=== PATIENT | female | born 1940 | race Caucasian/White ===

== ENCOUNTER → 2018-10-16 | Outpatient (CLI) | payer OTHER ==
[~2018-10-16] MED LIST: ALBU2.5V5 NEB; ALBU90OI61 INH; ALEN70 PO; ATOR40TA PO; Alphagan P 5ML5 ML BOTHEYES; Aspirin EC81 MG PO; BREO ELLIPTA 11 EACH INH; DORZOPSO BOTHEYES; METO25 PO; OMEPRAZOLE MAGN20 MG PO; Xalatan2.5 ML BOTHEYES
[2018-10-16 13:41] LABS: Alanine Aminotransfer (ALT/SGP 75 U/L (12-78); Albumin/Globulin Ratio 0.7 (0.8-1.8); Alk Phos 260 U/L (40-126); Anion Gap 10 mmol/L (6-16); Aspartate Aminotrans (AST/SGOT 56 U/L (12-37); Bilirubin, Total 0.4 mg/dL (0.1-1.0); Blood Urea Nitrogen 14 mg/dL (8-24); Bun/Creatinine Ratio 20.9 (12.0-20.0); CO2, Blood 25 mmol/L (21-32); Calcium, Blood 8.1 mg/dL (8.5-10.1); Chloride, Blood 100 mmol/L (98-108); Creatinine, Blood 0.67 mg/dL (0.40-1.00); Globulin, Blood 4.2 g/dL (2.2-4.0); Glomerular Filtration Rate >60 (60-); Glucose, Blood 93 mg/dL (70-99); Potassium, Blood 3.8 mmol/L (3.5-5.5); Sodium, Blood 135 mmol/L (136-145); Total Protein, Blood 7.2 g/dL (6.4-8.2)
== END ==
LOC: LAB EV 13:05 → LAB SHORT 13:05
PROVIDERS: Physician Assistant
DX: R93.89 Abnormal findings on diagnostic imaging of other specified body structures (principal); R55 Syncope and collapse; R74.8 Abnormal levels of other serum enzymes
CPT/HCPCS: 80053; 82977

== ENCOUNTER 2018-10-17 15:58 | Inpatient (IN) | payer OTHER ==
[~2018-10-17] VITALS: Ht 160 cm; Wt 52.2 kg
[2018-10-17] MEDS ORDERED: BREO ELLIPTA 11 EACH INH (16:11)
[2018-10-17] MEDS ORDERED: ATOR40TA PO (16:11)
[2018-10-17] MEDS ORDERED: ALBU2.5V5 NEB (16:11)
[2018-10-17] MEDS ORDERED: METO25 PO (16:12)
[2018-10-17] MEDS ORDERED: OMEPRAZOLE MAGN20 MG PO (16:12)
[2018-10-17 16:41] LABS: BASOPHILS ABSOLUTE AUTO 0.07 K/mm3 (0.00-0.23); BASOPHILS PERCENT AUTO 1 % (0-2); EOSINOPHILS ABSOLUTE AUTO 0.71 K/mm3 (0.00-0.68); EOSINOPHILS PERCENT AUTO 6 % (0-6); Hematocrit 35.5 % (33.0-51.0); IMMATURE GRAN ABSOLUTE AUTO 0.11 K/mm3 (0.00-0.10); IMMATURE GRAN PERCENT AUTO 1 % (0-1); LYMPHOCYTES ABSOLUTE AUTO 1.61 K/mm3 (0.84-5.20); LYMPHOCYTES PERCENT AUTO 12 % (21-46); MONOCYTES ABSOLUTE AUTO 1.11 K/mm3 (0.16-1.47); MONOCYTES PERCENT AUTO 9 % (4-13); Mean Corpuscular HGB 28.5 pg (26.0-34.0); Mean Corpuscular Volume 92 fL (80-100); Mean Platelet Volume 8.6 fL (9.1-12.4); NEUTROPHILS ABSOLUTE AUTO 9.34 K/mm3 (1.96-9.15); NEUTROPHILS PERCENT AUTO 72 % (41-73); Platelet Count 532 K/mm3 (150-400); RDW Coefficient Variation 13.9 % (11.7-14.2); RDW Standard Deviation 47.4 fL (35.1-46.3); Red Blood Cell Count 3.86 M/mm3 (3.80-5.20); White Blood Cell Count 12.95 K/mm3 (4.00-11.30)
[2018-10-17 17:00] LABS: Alanine Aminotransfer (ALT/SGP 51 U/L (12-78); Albumin, Blood 2.8 g/dL (3.4-5.0); Albumin/Globulin Ratio 0.5 (0.8-1.8); Alk Phos 246 U/L (50-136); Anion Gap 10 mmol/L (6-16); Aspartate Aminotrans (AST/SGOT 27 U/L (12-37); Bilirubin, Total 0.2 mg/dL (0.1-1.0); Blood Urea Nitrogen 12 mg/dL (8-24); Bun/Creatinine Ratio 22.9 (12.0-20.0); CO2, Blood 23 mmol/L (21-32); Calcium, Blood 8.6 mg/dL (8.5-10.1); Chloride, Blood 104 mmol/L (98-108); Creatinine, Blood 0.53 mg/dL (0.40-1.00); Globulin, Blood 5.1 g/dL (2.2-4.0); Glomerular Filtration Rate >60 (60-); Glucose, Blood 107 mg/dL (70-99); Potassium, Blood 3.5 mmol/L (3.5-5.5); Sodium, Blood 137 mmol/L (136-145); Total Protein, Blood 7.9 g/dL (6.4-8.2)
[2018-10-17] MEDS ORDERED: Alphagan P 5ML5 ML BOTHEYES (17:46)
[2018-10-17] MEDS ORDERED: DORZOPSO BOTHEYES (17:46)
[2018-10-17] MEDS ORDERED: Xalatan2.5 ML BOTHEYES ×2 (17:47→21:02)
[2018-10-17] MEDS ORDERED: ALEN70 PO (18:01)
[2018-10-17] MEDS ORDERED: ALBU90OI61 INH (18:55)
[2018-10-17] MEDS ORDERED: Aspirin EC81 MG PO (18:58)
[2018-10-18 04:56] LABS: BASOPHILS ABSOLUTE AUTO 0.09 K/mm3 (0.00-0.23); BASOPHILS PERCENT AUTO 1 % (0-2); EOSINOPHILS ABSOLUTE AUTO 0.85 K/mm3 (0.00-0.68); EOSINOPHILS PERCENT AUTO 9 % (0-6); Hematocrit 33.7 % (33.0-51.0); Hemoglobin 10.4 g/dL (11.5-16.0); IMMATURE GRAN ABSOLUTE AUTO 0.19 K/mm3 (0.00-0.10); IMMATURE GRAN PERCENT AUTO 2 % (0-1); LYMPHOCYTES ABSOLUTE AUTO 1.77 K/mm3 (0.84-5.20); LYMPHOCYTES PERCENT AUTO 18 % (21-46); MONOCYTES ABSOLUTE AUTO 0.91 K/mm3 (0.16-1.47); MONOCYTES PERCENT AUTO 9 % (4-13); Mean Corpuscular HGB 28.4 pg (26.0-34.0); Mean Corpuscular HGB Conc 30.9 g/dL (31.5-36.5); Mean Corpuscular Volume 92 fL (80-100); Mean Platelet Volume 8.7 fL (9.1-12.4); NEUTROPHILS ABSOLUTE AUTO 6.21 K/mm3 (1.96-9.15); NEUTROPHILS PERCENT AUTO 62 % (41-73); Platelet Count 507 K/mm3 (150-400); RDW Coefficient Variation 13.9 % (11.7-14.2); RDW Standard Deviation 47.6 fL (35.1-46.3); Red Blood Cell Count 3.66 M/mm3 (3.80-5.20); White Blood Cell Count 10.02 K/mm3 (4.00-11.30)
[2018-10-18 05:22] LABS: Anion Gap 9 mmol/L (6-16); Blood Urea Nitrogen 9 mg/dL (8-24); Bun/Creatinine Ratio 16.2 (12.0-20.0); CO2, Blood 22 mmol/L (21-32); Calcium, Blood 8.8 mg/dL (8.5-10.1); Chloride, Blood 109 mmol/L (98-108); Creatinine, Blood 0.56 mg/dL (0.40-1.00); Glomerular Filtration Rate >60 (60-); Glucose, Blood 93 mg/dL (70-99); Potassium, Blood 3.8 mmol/L (3.5-5.5); Sodium, Blood 140 mmol/L (136-145); Thyroxine (T4) 8.8 ug/dL (4.8-13.9)
[2018-10-18 05:27] LABS: Thyroid Stimulating Hormone 0.406 uIU/mL (0.360-4.800)
--- NOTE | 2018-10-18 05:40 | NUR ---
SHIFT SUMMARY PT ARRIVED TO ROOM APPROX 2014. C/O PAIN IN UPPER BODY AND HEAD AND MEDICATED C TYLENOL. SHE SAID IT HELPED FOR AWHILE BUT SINCE SHE WAS COUGHING SO MUCH HER RIBS WERE SORE AND NEEDED MORE TYLENOL LATER. SBA TO BA FOR IV POLE ASSISTANCE. RA AT 94%. SHE WAS ABLE TO DOZE ON AND OFF T/O NIGHT. CALL LIGHT IN REACH.
--- NOTE | 2018-10-18 07:20 | NUR ---
ASSUMED CARE OF PT- BEDSIDE REPORT COMPLETE WITH NIGHT KASSIDY KULKARNI. PT IN AIRBORN ISOLATION TO R/O TB. SPOKE TO NANCY MARRUFO IN INFECTION CONTROL AND VERIFIED NO CONTACT IOSLATION NEEDED. PT HAS NO OPEN WOUNDS. PT HAS NO S&S OF DISTRESS AT THE TIME OF BEDSIDE REPORT, RESP E/U.
--- NOTE | 2018-10-18 17:06 | NUR ---
PT ASED STAFF IF DOUBLE VISION COULD BE CAUSED BY THE ANTIBIOTICS SHE IS RECIEVING. CALLED PHARMACIST AYSHA GUERRA FOR ADDITIONAL INFO REGUARDING, WAITING FOR CALL BACK.
--- NOTE | 2018-10-18 17:10 | NUR ---
CONFIRMED WITH AYSHA IN PHARMACY THAT DIPLOPIA IS A POSSIBLE SIDE EFFECT OF LEVAQUIN. WILL CALL DR RENDON PT MAY NEED ALTERNATIVE ABX TREATMENT.
--- NOTE | 2018-10-18 17:22 | NUR ---
SPOKE TO NIGHT COVERAGE FOR WAL[facility] CARLOS. NO CHANGE TO THE EMAR AT THIS TIME. WALI CARLOS SHOULD ADRESS THIS ISSUE IN THE MORNING.
--- NOTE | 2018-10-18 17:58 | NUR ---
SHIFT SUMMARY- PT HAS HAD NO ACUTE CHANGES T/O THE SHIFT. SHE APPEARS TO BE VERY EMOTIONAL, SPOKE TO NURSING RESIDENCE SUPERVISOR ABOUT A VISIT FROM PASTORAL CARE, WILL PLACE A PASTORAL CARE CARE CONSULT. PT CURRENTLY MEETING WITH PALLIATIVE CARE RN YAJAIRA. PT HAS HER ADVANCED DIRECTIVE ON THE BEDSIDE TABLE. PT IS STILL A 1PA TO THE BATHROOM. PT GETS TIRED AND A LITTLE SOB WITH AMBULATION. PT WAS HAVING DOUBLE VISION BUT STATES IT HAS RESOLVED AT THIS POINT. PT STATED THIS ACTUALLY COMES AND GOES FREQUENTLY. MAY NOT BE A SIDE EFFECT OF THE ABX.
--- NOTE | 2018-10-19 04:10 | NUR ---
DIRECTOR PROSPECT SUMMARY NO ACUTE CHANGES THIS SHIFT. PT AAOX4 AND VERY PLEASANT. DENIES PAIN, SOB, N/V. PT ABLE TO SLEEP FOR THE FIRST TIMES IN A FEW DAYS. PT HAS RESTED COMFORTABLY FOR THE MAJORIT OF THE SHIFT. VSS, WILL CONTINUE TO MONITOR.
--- NOTE | 2018-10-19 18:00 | NUR ---
SUMMARY PT IS A/O X4, PLEASANT/COOPERATIVE AFFECT. SHE STATE NO SHORTNESS OF BREATH @ REST, STATE CONTINUING SOB W EXERTION HOWEVER SHE HAS BEEN UP AMBULATING IN [place]. DR MILLS (PULM) IN TO SEE HER TODAY, STATE OK TO AMBULATE IN ROOM. STATE AFTER PT TREATED FOR CURRENT PNEUMONIA SHE WILL RECOMMEND OUTPT BRONCHOSCOPY. IV ANTIBX CHANGED, ALSO ORDER IV SOLUMEDROL. LUNGS ARE COARSE W DRY/FINANCIAL SERVICES ASSOCIATE COUGH. BIOX 94% RA, VSS.
--- NOTE | 2018-10-20 07:37 | NUR ---
SHIFT SUMMARY: PT WITH NEW ACUTE CHANGES OVERNIGHT. PT IS A&O, INDEPENDENT IN RM. LS COARSE, O2 SATS >92% ON RA. PT HAD CHEST PHYSIOTHERAPY TONIGHT PER RT. IV ANTIBIOTICS AND IV SOLU MEDROL ADMINISTERED PER ORDERS. LAST NIGHT, PT REPORTS IMPROVEMENT IN SOB. HOWEVER, THIS AM PT REPORTS MORE SOB WHEN AMBULATING. NO OTHER CHANGES TO REPORT. WILL CONT TO MONITOR AND PROVIDE CARE.
[2018-10-20 12:21] LABS: Creatinine, Blood 0.61 mg/dL (0.40-1.00); Vancomycin, Trough 7.7 ug/mL (5.0-10.0)
--- NOTE | 2018-10-20 17:22 | NUR ---
SUMMARY PT IS A/O X4, PLEASANT/COOPERATIVE, VERY APPRECIATIVE OF CARE. SHE STATE SHORTNESS OF BREATH CONTINUES TO IMPROVE, STATE CHEST CPT EFFECTIVE. LUNGS SOMEWHAT IMPROVED TODAY HOWEVER STILL SOME COARSENESS IN BASES. OCCASIONAL DRY COUGH, UNABLE TO PRODUCE SPUTUM. BIOX 96% RA. IV SOLUMEDROL & ANTIBX CONTINUE, PULMONOLOGY (DR MILLS) CONTINUES TO FOLLOW/MX. VSS.
--- NOTE | 2018-10-21 07:13 | NUR ---
SHIFT SUMMARY PT IS A 78 Y/O FEMALE, ADMITTED FOR PNA. SHE IS A&O X 4, AND INDEPENDENT IN THE ROOM. SHE DENIED ANY ACUTE PAIN, NAUSEA OR SOB. VITALS REMAINED STABLE. NO OTHER ACUTE CHANGES IN PT CONDITION NOTED. WILL CONTINUE TO MONITOR AND TREAT PER EMAR.
--- NOTE | 2018-10-21 14:16 | NUR ---
Met with Mrs. Quiros and her , Dominic, at bedside. Both report a strong felipe that sustains them during fearful times. Karey is a delight-talkative and friendly. She expects to be discharged this afternoon. Dominic and Karey have been 31 years. They have nine children between them and 40+ grand & great grand kids. Karey became tearful when she spoke about her gratitude to God for healing her. The three of us prayed together for continued healing and brad. I will remain available.
[2018-10-21] MEDS ORDERED: ACET500 PO (15:01)
[2018-10-21] MEDS ORDERED: MUCUS ER600 MG PO (15:03)
[2018-10-21] MEDS ORDERED: Florastor250 MG PO (15:03)
[2018-10-21] MEDS ORDERED: LEVO750 PO (15:04)
[2018-10-21] MEDS ORDERED: PRED20 PO (15:15)
--- NOTE | 2018-10-21 16:48 | NUR ---
1645 PT DISCHARGED HOME VIA PERSONAL VEHICLE ACCOMPANIED AND DRIVEN BY . ESCORTED TO [facility] ENTRANCE VIA W/C BY HOME HEALTH TRAVEL OT. IV REMOVED. NEW RX FAXED TO [facility] PER PT REQUEST. PULMONOLGY APPOINTMENT MADE FOR 12/02/18. CARE MANAGEMENT FOR [facility] SET UP APPOINTMENT FOR PCP. NO NEW CHANGES. OR CONCERNS THIS SHIFT.
== END 2018-10-21 16:46 | disposition home or self-care (01) | DRG 193 ==
LOC: ER 15:58 → MEDS 17:58 → ENPENDDIS 10-21 11:58 → MEDS 10-21 16:46
PROVIDERS: Emergency Medicine; Internal Medicine; Internal Medicine Pulmonary Disease; ADMIT Family Medicine
DX: J18.0 Bronchopneumonia, unspecified organism (principal); J96.21 Acute and chronic respiratory failure with hypoxia; J45.901 Unspecified asthma with (acute) exacerbation; J47.9 Bronchiectasis, uncomplicated; E78.5 Hyperlipidemia, unspecified; Z66 Do not resuscitate; R62.7 Adult failure to thrive; I25.10 Atherosclerotic heart disease of native coronary artery without angina pectoris; H40.9 Unspecified glaucoma; Z95.1 Presence of aortocoronary bypass graft; Z68.20 Body mass index [BMI] 20.0-20.9, adult
CPT/HCPCS: 36415; 71250; 80048; 80053; 80202; 82565; 83605; 84145; 84436; 84443; 85025; 87040; 87070; 87205; 94640; 94667; 94668; 94760; 96365; 99285-25; J0696; J1650; J1956; J2543; J2920; J3370; J7050; J7120

== ENCOUNTER → 2018-10-17 | Outpatient (CLI) | payer OTHER ==
[2018-10-18 08:10] LABS: HBSAG SCREEN Negative (Negative); HEP A AB, IGM Negative (Negative); HEP B CORE AB, IGM Negative (Negative); HEP C VIRUS AB <0.1 (0.0-0.9)
== END ==
LOC: LAB EV 09:00 → LAB SHORT 09:00
PROVIDERS: Physician Assistant
DX: R10.84 Generalized abdominal pain (principal); R93.89 Abnormal findings on diagnostic imaging of other specified body structures
CPT/HCPCS: 80074

== ENCOUNTER 2019-07-18 07:22 | Day surgery (SDC) | payer OTHER ==
[~2019-07-18] VITALS: Ht 160 cm; Wt 56.5 kg
[~2019-07-18 07:22] MED LIST changes: +ACET500 PO; +Florastor250 MG PO; +LEVO750 PO; +MUCUS ER600 MG PO; +PRED20 PO
--- NOTE | 2019-07-18 08:30 | NUR ---
Ambulatory in Day Surgery. History, Chart, Medications and Allergies reviewed before start of procedure.Patient confirms NPO status and agrees with scheduled surgery. Lungs clear T/O to Auscultation. Patient States Post-Procedure ride home has been arranged WITH .
--- NOTE | 2019-07-18 09:07 | NUR ---
07/18/19 0907 VENTURA LOZANO 2% LIDOCAINE JELLY WITH 5 DROPS AVA-SYNEPHRINE 0.5% APPLIED TO BILATERAL NARES WITH COTTON TIP APPLICATOR. 2% LIDOCAINE SOLUTION SPRAYED TO OROPHARYNX USING ATOMIZATION DEVICE UNTIL GAG REFLEX GONE. History, Chart, Medications and Allergies reviewed before start of procedure.3-LEAD EKG REVIEWED WITH PHYSICIAN PRIOR TO START OF PROCEDURE.O2 VIA N/C INTACT THROUGHOUT SEDATION/PROCEDURE.
--- NOTE | 2019-07-18 09:46 | NUR ---
ARRIVED FROM ENDO WAKING UP TALKING TO STAFF SOME CAUGHING AND BLOWING NOSE. VSS
--- NOTE | 2019-07-18 11:48 | NUR ---
Discharge instructions reviewed with patient. Patient verbalizes understanding. Copy given to patient to take home. Patient States Post-Procedure ride home has been arranged. Discharged via wheelchair to private car for ride home.
== END 2019-07-18 22:53 | disposition home or self-care (01) ==
LOC: ORSCMMR 07:22 → ORD 08:30 → ORSCMMR 22:53
PROVIDERS: Internal Medicine Pulmonary Disease
PROC: 0B9J8ZX Drainage of Left Lower Lung Lobe, Via Natural or Artificial Opening Endoscopic, Diagnostic (ICD-10-PCS; principal; 2019-07-18 08:30)
DX: J47.1 Bronchiectasis with (acute) exacerbation (principal); J45.909 Unspecified asthma, uncomplicated; Z79.899 Other long term (current) drug therapy
CPT/HCPCS: 71045; 87070; 87071; 87077; 87186; 87205; 88108; 88312; J2250; J3010; J7120

== ENCOUNTER → 2020-12-21 | Outpatient (CLI) | payer OTHER | END | disposition home or self-care (01) | LOC: LAB SHORT 07:40 | DX: J47.1 Bronchiectasis with (acute) exacerbation (principal) | CPT/HCPCS: 87070; 87077; 87186; 87205 ==

== ENCOUNTER → 2021-02-01 | Outpatient (CLI) | payer OTHER | END | disposition home or self-care (01) | LOC: LAB SHORT 08:50 | DX: J47.1 Bronchiectasis with (acute) exacerbation (principal) | CPT/HCPCS: 87015; 87116; 87206 ==

== ENCOUNTER → 2021-02-02 | Outpatient (CLI) | payer OTHER | END | disposition home or self-care (01) | LOC: LAB SHORT 11:15 | DX: J47.1 Bronchiectasis with (acute) exacerbation (principal) | CPT/HCPCS: 87015; 87116; 87206 ==

== ENCOUNTER → 2021-02-04 | Outpatient (CLI) | payer OTHER | END | disposition home or self-care (01) | LOC: LAB SHORT 09:50 → LAB 09:50 | DX: J47.1 Bronchiectasis with (acute) exacerbation (principal) | CPT/HCPCS: 87015; 87116; 87206 ==

== ENCOUNTER → 2021-02-09 | Outpatient (CLI) | payer OTHER | LOC: LAB SHORT 11:50 → LAB 11:50 | DX: J47.9 Bronchiectasis, uncomplicated (principal); Z87.09 Personal history of other diseases of the respiratory system | CPT/HCPCS: 87070; 87077; 87186; 87205 ==

== ENCOUNTER → 2021-08-15 | Outpatient (CLI) | payer OTHER | END | disposition home or self-care (01) | LOC: LAB SHORT 08:54 → LAB 08:54 | DX: J47.1 Bronchiectasis with (acute) exacerbation (principal) | CPT/HCPCS: 87070; 87077; 87186; 87205 ==

== ENCOUNTER → 2021-08-30 | Outpatient (CLI) | payer OTHER | END | disposition home or self-care (01) | LOC: LAB SHORT 15:16 → LAB 15:16 | DX: J47.1 Bronchiectasis with (acute) exacerbation (principal) | CPT/HCPCS: 87070; 87077; 87186; 87205 ==

== ENCOUNTER → 2021-09-11 | Outpatient (CLI) | payer OTHER ==
[2021-09-11 10:49] LABS: BASOPHILS ABSOLUTE AUTO 0.06 K/mm3 (0.00-0.23); BASOPHILS PERCENT AUTO 1 % (0-2); EOSINOPHILS ABSOLUTE AUTO 0.09 K/mm3 (0.00-0.68); EOSINOPHILS PERCENT AUTO 1 % (0-6); Hematocrit 33.3 % (33.0-51.0); Hemoglobin 10.4 g/dL (11.5-16.0); IMMATURE GRAN ABSOLUTE AUTO 0.04 K/mm3 (0.00-0.10); IMMATURE GRAN PERCENT AUTO 0 % (0-1); LYMPHOCYTES ABSOLUTE AUTO 1.45 K/mm3 (0.84-5.20); LYMPHOCYTES PERCENT AUTO 11 % (21-46); MONOCYTES ABSOLUTE AUTO 0.86 K/mm3 (0.16-1.47); MONOCYTES PERCENT AUTO 7 % (4-13); Mean Corpuscular HGB 28.7 pg (26.0-34.0); Mean Corpuscular HGB Conc 31.2 g/dL (31.5-36.5); Mean Corpuscular Volume 92 fL (80-100); Mean Platelet Volume 8.5 fL (9.1-12.4); NEUTROPHILS ABSOLUTE AUTO 10.64 K/mm3 (1.96-9.15); NEUTROPHILS PERCENT AUTO 81 % (41-73); Platelet Count 404 K/mm3 (150-400); RDW Coefficient Variation 13.4 % (11.7-14.2); RDW Standard Deviation 45.2 fL (35.1-46.3); Red Blood Cell Count 3.62 M/mm3 (3.80-5.20); White Blood Cell Count 13.14 K/mm3 (4.00-11.30)
[2021-09-11 11:06] LABS: Alanine Aminotransfer (ALT/SGP 21 U/L (12-78); Albumin, Blood 3.2 g/dL (3.4-5.0); Albumin/Globulin Ratio 0.9 (0.8-1.8); Alk Phos 77 U/L (40-126); Anion Gap 8 mmol/L (6-16); Aspartate Aminotrans (AST/SGOT 17 U/L (12-37); Bilirubin, Total 0.3 mg/dL (0.1-1.0); Blood Urea Nitrogen 10 mg/dL (8-24); Bun/Creatinine Ratio 16.7 (12.0-20.0); CO2, Blood 25 mmol/L (21-32); Calcium, Blood 8.6 mg/dL (8.5-10.1); Chloride, Blood 103 mmol/L (98-108); Globulin, Blood 3.5 g/dL (2.2-4.0); Glomerular Filtration Rate >60 (60-); Glucose, Blood 112 mg/dL (70-99); Potassium, Blood 3.9 mmol/L (3.5-5.5); Sodium, Blood 136 mmol/L (136-145); Total Protein, Blood 6.7 g/dL (6.4-8.2)
== END ==
LOC: LAB SHORT 10:44 → LAB EV 10:44
PROVIDERS: General Practice
DX: R06.00 Dyspnea, unspecified (principal)
CPT/HCPCS: 80053; 85025

== ENCOUNTER → 2021-10-10 | Outpatient (CLI) | payer OTHER ==
[~2021-10-10] MED LIST changes: +ALBU3IS INH; +ASPI81CH PO; +ATORVASTATIN CA80 M1 PO; +BREO ELLIPTA INH; +Brimonidine Tartrate BOTHEYES; +DORZOLAMIDE 2%10 M1 BOTHEYES; +FOSAMAX70 MG PO; +Latanoprost BOTHEYES; +Lopressor 25 mg25 MG PO; +OMEP20ER PO
== END | disposition home or self-care (01) ==
LOC: LAB SHORT 10:15
DX: J47.1 Bronchiectasis with (acute) exacerbation (principal)
CPT/HCPCS: 87070; 87077; 87186; 87205

== ENCOUNTER 2021-10-13 15:26 | Inpatient (IN) | payer OTHER, MEDICARE ==
[~2021-10-13] VITALS: Ht 160 cm; Wt 49.8 kg
[~2021-10-13 15:26] MED LIST changes: -ALBU3IS INH; -ASPI81CH PO; -ATORVASTATIN CA80 M1 PO; -BREO ELLIPTA INH; -Brimonidine Tartrate BOTHEYES; -DORZOLAMIDE 2%10 M1 BOTHEYES; -FOSAMAX70 MG PO; -Latanoprost BOTHEYES; -Lopressor 25 mg25 MG PO; -OMEP20ER PO
--- NOTE | 2021-10-13 15:46 | NUR ---
DR BELTRÁN NOTIFIED OF PATIENT'S ARRIVAL TO ROOM AT THIS TIME. AWAITING NEW ORDERS.
[2021-10-13 16:24] LABS: BASOPHILS ABSOLUTE AUTO 0.08 K/mm3 (0.00-0.23); BASOPHILS PERCENT AUTO 1 % (0-2); EOSINOPHILS ABSOLUTE AUTO 0.16 K/mm3 (0.00-0.68); EOSINOPHILS PERCENT AUTO 1 % (0-6); Hematocrit 37.8 % (33.0-51.0); Hemoglobin 11.6 g/dL (11.5-16.0); IMMATURE GRAN ABSOLUTE AUTO 0.07 K/mm3 (0.00-0.10); IMMATURE GRAN PERCENT AUTO 1 % (0-1); LYMPHOCYTES ABSOLUTE AUTO 2.42 K/mm3 (0.84-5.20); LYMPHOCYTES PERCENT AUTO 16 % (21-46); MONOCYTES ABSOLUTE AUTO 0.88 K/mm3 (0.16-1.47); MONOCYTES PERCENT AUTO 6 % (4-13); Mean Corpuscular HGB 28.2 pg (26.0-34.0); Mean Corpuscular HGB Conc 30.7 g/dL (31.5-36.5); Mean Corpuscular Volume 92 fL (80-100); Mean Platelet Volume 8.3 fL (9.1-12.4); NEUTROPHILS ABSOLUTE AUTO 11.47 K/mm3 (1.96-9.15); NEUTROPHILS PERCENT AUTO 76 % (41-73); Platelet Count 608 K/mm3 (150-400); RDW Coefficient Variation 13.2 % (11.7-14.2); RDW Standard Deviation 44.6 fL (35.1-46.3); Red Blood Cell Count 4.12 M/mm3 (3.80-5.20); White Blood Cell Count 15.08 K/mm3 (4.00-11.30)
[2021-10-13] MEDS ORDERED: ALBU3IS INH (16:54)
[2021-10-13] MEDS ORDERED: FOSAMAX70 MG PO (16:55)
[2021-10-13] MEDS ORDERED: ASPI81CH PO (16:57)
[2021-10-13] MEDS ORDERED: ATORVASTATIN CA80 M1 PO (16:58)
[2021-10-13] MEDS ORDERED: Brimonidine Tartrate BOTHEYES (16:59)
[2021-10-13] MEDS ORDERED: DORZOLAMIDE 2%10 M1 BOTHEYES (17:00)
[2021-10-13] MEDS ORDERED: BREO ELLIPTA INH (17:02)
[2021-10-13] MEDS ORDERED: Latanoprost BOTHEYES (17:03)
[2021-10-13 17:04] LABS: Alanine Aminotransfer (ALT/SGP 23 U/L (12-78); Albumin, Blood 3.6 g/dL (3.4-5.0); Albumin/Globulin Ratio 0.8 (0.8-1.8); Alk Phos 83 U/L (50-136); Anion Gap 7 mmol/L (6-16); Aspartate Aminotrans (AST/SGOT 19 U/L (12-37); Bilirubin, Total 0.1 mg/dL (0.1-1.0); Blood Urea Nitrogen 16 mg/dL (8-24); Bun/Creatinine Ratio 23.9 (12.0-20.0); CO2, Blood 27 mmol/L (21-32); Calcium, Blood 9.5 mg/dL (8.5-10.1); Chloride, Blood 104 mmol/L (98-108); Creatinine, Blood 0.67 mg/dL (0.40-1.00); Globulin, Blood 4.7 g/dL (2.2-4.0); Glomerular Filtration Rate >60 (60-); Glucose, Blood 110 mg/dL (70-99); Potassium, Blood 4.7 mmol/L (3.5-5.5); Sodium, Blood 138 mmol/L (136-145); Total Protein, Blood 8.3 g/dL (6.4-8.2)
[2021-10-13] MEDS ORDERED: Lopressor 25 mg25 MG PO (17:04)
[2021-10-13] MEDS ORDERED: OMEP20ER PO (17:06)
[2021-10-13 17:16] LABS: Influenza A, PCR NEGATIVE (NEGATIVE); Influenza B, PCR NEGATIVE (NEGATIVE); Resp Syncytial Virus, PCR NEGATIVE (NEGATIVE); SARS-Cov-2 (COVID-19) PCR, MMC NEGATIVE (NEGATIVE)
--- NOTE | 2021-10-13 18:02 | NUR ---
SHIFT SUMMARY PT AXO, PLEASANT AND COOPERATIVE WITH CARE. PT ARRIVED TO ROOM VIA WHEELCHAIR AT 1543. ADMISSION COMPLETED WITH THIS NURSE WITH PROGRAM PARAPROFESSIONAL PRESENT. IV PLACED. PT ORIENTED TO ROOM, CALL LIGHT AND INSTRUCTED TO CALL PRIOR TO OOB. PT AGREES. BED IN LOW POSITION, CALL LIGHT WITHIN REACH AND SPOUSE PRESENT AT BEDSIDE. PT HAVING PRODUCTIVE COUGH WITH THICK YELLOW SPUTUM. 94% ON RA. PT DENIES PAIN, SOB AND NV.
[2021-10-14 04:45] LABS: BASOPHILS ABSOLUTE AUTO 0.07 K/mm3 (0.00-0.23); BASOPHILS PERCENT AUTO 1 % (0-2); EOSINOPHILS ABSOLUTE AUTO 0.22 K/mm3 (0.00-0.68); EOSINOPHILS PERCENT AUTO 2 % (0-6); Hematocrit 34.4 % (33.0-51.0); Hemoglobin 10.6 g/dL (11.5-16.0); IMMATURE GRAN ABSOLUTE AUTO 0.04 K/mm3 (0.00-0.10); IMMATURE GRAN PERCENT AUTO 0 % (0-1); LYMPHOCYTES ABSOLUTE AUTO 2.09 K/mm3 (0.84-5.20); LYMPHOCYTES PERCENT AUTO 23 % (21-46); MONOCYTES ABSOLUTE AUTO 0.86 K/mm3 (0.16-1.47); MONOCYTES PERCENT AUTO 9 % (4-13); Mean Corpuscular HGB 27.7 pg (26.0-34.0); Mean Corpuscular HGB Conc 30.8 g/dL (31.5-36.5); Mean Corpuscular Volume 90 fL (80-100); Mean Platelet Volume 8.6 fL (9.1-12.4); NEUTROPHILS ABSOLUTE AUTO 5.88 K/mm3 (1.96-9.15); NEUTROPHILS PERCENT AUTO 64 % (41-73); Platelet Count 531 K/mm3 (150-400); RDW Coefficient Variation 13.2 % (11.7-14.2); RDW Standard Deviation 43.8 fL (35.1-46.3); Red Blood Cell Count 3.83 M/mm3 (3.80-5.20); White Blood Cell Count 9.16 K/mm3 (4.00-11.30)
[2021-10-14 05:04] LABS: Anion Gap 8 mmol/L (6-16); Blood Urea Nitrogen 16 mg/dL (8-24); Bun/Creatinine Ratio 19.3 (12.0-20.0); CO2, Blood 26 mmol/L (21-32); Calcium, Blood 9.3 mg/dL (8.5-10.1); Chloride, Blood 103 mmol/L (98-108); Creatinine, Blood 0.83 mg/dL (0.40-1.00); Glomerular Filtration Rate >60 (60-); Glucose, Blood 101 mg/dL (70-99); Potassium, Blood 4.1 mmol/L (3.5-5.5); Sodium, Blood 137 mmol/L (136-145)
--- NOTE | 2021-10-14 07:22 | NUR ---
SHIFT SUMMARY: PATIENT REPORTS FEELING WEAK AND REQUESTS A FWW FOR AMBULATION, DOES NOT USE ONE AT HOME. REPORTED LEGS CRAMPS AND REQUESTED SLEEPING PILL. DR SEARS WAS NOTIFIED AND ORDERS FOR MELATONIN AND TYLENOL WERE OBTAINED AND MEDS WERE GIVEN WITH GOOD EFFECT.
--- NOTE | 2021-10-14 11:24 | NUR ---
Responding to Pt. Spiritual Request. Pt. is alert in bed and welcomes my visit. Care management was wrapping up an interview, and friend is present. Pt. is pleasant and shares genuinely how God has prtoected her through several serious health crisis in her life. Pt. is a woman of felipe. Rapport is established and prayer is given in light of her anticipated discharge to a skilled care facility. Pt. and friend verbalized gratitude for the spiritual care visit.
--- NOTE | 2021-10-15 06:47 | NUR ---
SHIFT SUMMARY: PATIENT IS UP INDEPENDANT IN THE ROOM WITH A STEADY GAIT. REQUESTED PRN MELATONIN FOR INSOMNIA AND TYLENOL FOR HEADACHE. MEDS WERE GIVEN WITH GOOD EFFECT. LOW GRADE TEMP. ALSO RESOLVED WITH TYLENOL ADMIN.
--- NOTE | 2021-10-15 16:40 | NUR ---
DAY SHIFT SUMMARY 81 YR OLD FEMALE PT ADMITTED FOR PNEUMONIA. COUGH PRODUCTIVE. INDEPENDENT IN ROOM, A/O X4, ON RA. AWAITING SNF PLACEMENT FOR ABX THERAPY. CALL LIGHT WITHIN REACH AND ABLE TO CALL APPROPRIATE.
[2021-10-16 05:05] LABS: BASOPHILS ABSOLUTE AUTO 0.08 K/mm3 (0.00-0.23); BASOPHILS PERCENT AUTO 1 % (0-2); EOSINOPHILS ABSOLUTE AUTO 0.21 K/mm3 (0.00-0.68); EOSINOPHILS PERCENT AUTO 2 % (0-6); Hematocrit 33.1 % (33.0-51.0); Hemoglobin 10.4 g/dL (11.5-16.0); IMMATURE GRAN ABSOLUTE AUTO 0.03 K/mm3 (0.00-0.10); IMMATURE GRAN PERCENT AUTO 0 % (0-1); LYMPHOCYTES PERCENT AUTO 28 % (21-46); MONOCYTES ABSOLUTE AUTO 0.78 K/mm3 (0.16-1.47); MONOCYTES PERCENT AUTO 8 % (4-13); Mean Corpuscular HGB 27.9 pg (26.0-34.0); Mean Corpuscular HGB Conc 31.4 g/dL (31.5-36.5); Mean Corpuscular Volume 89 fL (80-100); Mean Platelet Volume 8.7 fL (9.1-12.4); NEUTROPHILS ABSOLUTE AUTO 5.71 K/mm3 (1.96-9.15); NEUTROPHILS PERCENT AUTO 61 % (41-73); Platelet Count 545 K/mm3 (150-400); RDW Coefficient Variation 13.2 % (11.7-14.2); RDW Standard Deviation 43.2 fL (35.1-46.3); Red Blood Cell Count 3.73 M/mm3 (3.80-5.20); White Blood Cell Count 9.41 K/mm3 (4.00-11.30)
--- NOTE | 2021-10-16 05:31 | NUR ---
SHIFT SUMMARY: NO ACUTE CHANGES THIS SHIFT. PATIENT REQUESTED TYLENOL FOR SLIGHT HEADACHE FROM COUGHING AND MELATONIN FOR SLEEP. BOTH WERE GIVEN WITH GOOD EFFECT. IV SITE IS IRRITAING IN LEFT AC. DRGS IS CHANGED, SIGHT IS INTACT BUT PATIENTWILL NEED AN EXTENDED DWELLING IV SITE JONEL.
[2021-10-16 05:48] LABS: Anion Gap 5 mmol/L (6-16); Blood Urea Nitrogen 14 mg/dL (8-24); CO2, Blood 26 mmol/L (21-32); Calcium, Blood 9.3 mg/dL (8.5-10.1); Chloride, Blood 103 mmol/L (98-108); Creatinine, Blood 0.52 mg/dL (0.40-1.00); Glomerular Filtration Rate >60 (60-); Glucose, Blood 103 mg/dL (70-99); Magnesium, Blood 2.2 mg/dL (1.6-2.4); Phosphorus, Blood 3.9 mg/dL (2.5-4.9); Sodium, Blood 134 mmol/L (136-145)
--- NOTE | 2021-10-16 13:41 | NUR ---
Attempted to place powerglide, 3 unsuccessful attempts. Able to get blood return twice but unable to advance the cannula. Bruising noted to LILI. Prior bruising from a past IV site noted to RANDY. Bedside nurse notified.
--- NOTE | 2021-10-16 16:34 | NUR ---
DAY SHIFT SUMMARY 81 YR OLD FEMALE PT WITH PNEUMONIA, DNR, ON RA. PT WAITING FOR SNF PLACEMENT FOR IV ABX THERAPY. PICC LINE PLACED TODAY IN [place], TOLERATED WELL. PT IS A/O AND INDEPENDENT IN THE ROOM. CALL LIGHT WITHIN REACH AND ABLE TO CALL APPROPRIATELY.
--- NOTE | 2021-10-17 03:58 | NUR ---
SUMMARY: PT A/OX4, INDEPENDENT IN ROOM AND CALLS APPROPRIATELY TO SPECIFY NEEDS. SHE REMAINS ON RA W/SPO2 WNL AND NO S/S RESP DISTRESS. IV ABX RECIEVED FOR PNM. PICC TO CONY IS SL'D WARM BLANKET PROVIDED TO YRN HEMATOMA FROM FAILED IV STARTS. TYLENOL PROVIDED PRN FOR TOLERABLE RELIEF OF SUÁREZ AND NECK PAIN AND MELATONIN RECEIVED AT HS FOR SLEEP. NO ACUTE CHANGES, VSS/AFEBRILE. WCTM AND REPORT TO DAY RN.
[2021-10-17 05:41] LABS: BASOPHILS ABSOLUTE AUTO 0.09 K/mm3 (0.00-0.23); BASOPHILS PERCENT AUTO 1 % (0-2); EOSINOPHILS ABSOLUTE AUTO 0.26 K/mm3 (0.00-0.68); EOSINOPHILS PERCENT AUTO 3 % (0-6); Hematocrit 34.1 % (33.0-51.0); Hemoglobin 10.6 g/dL (11.5-16.0); IMMATURE GRAN ABSOLUTE AUTO 0.04 K/mm3 (0.00-0.10); IMMATURE GRAN PERCENT AUTO 1 % (0-1); LYMPHOCYTES ABSOLUTE AUTO 2.58 K/mm3 (0.84-5.20); LYMPHOCYTES PERCENT AUTO 30 % (21-46); MONOCYTES ABSOLUTE AUTO 0.83 K/mm3 (0.16-1.47); MONOCYTES PERCENT AUTO 10 % (4-13); Mean Corpuscular HGB 27.7 pg (26.0-34.0); Mean Corpuscular HGB Conc 31.1 g/dL (31.5-36.5); Mean Corpuscular Volume 89 fL (80-100); Mean Platelet Volume 8.7 fL (9.1-12.4); NEUTROPHILS ABSOLUTE AUTO 4.87 K/mm3 (1.96-9.15); NEUTROPHILS PERCENT AUTO 56 % (41-73); Platelet Count 537 K/mm3 (150-400); RDW Coefficient Variation 13.2 % (11.7-14.2); RDW Standard Deviation 43.1 fL (35.1-46.3); Red Blood Cell Count 3.82 M/mm3 (3.80-5.20); White Blood Cell Count 8.67 K/mm3 (4.00-11.30)
[2021-10-17 06:33] LABS: Albumin, Blood 3.1 g/dL (3.4-5.0); Anion Gap 8 mmol/L (6-16); Blood Urea Nitrogen 14 mg/dL (8-24); Bun/Creatinine Ratio 25.8 (12.0-20.0); CO2, Blood 25 mmol/L (21-32); Calcium, Blood 9.5 mg/dL (8.5-10.1); Chloride, Blood 103 mmol/L (98-108); Creatinine, Blood 0.54 mg/dL (0.40-1.00); Glomerular Filtration Rate >60 (60-); Glucose, Blood 97 mg/dL (70-99); Magnesium, Blood 2.3 mg/dL (1.6-2.4); Phosphorus, Blood 3.7 mg/dL (2.5-4.9); Potassium, Blood 4.2 mmol/L (3.5-5.5); Sodium, Blood 136 mmol/L (136-145)
[2021-10-17 12:09] LABS: Influenza A, PCR NEGATIVE (NEGATIVE); Influenza B, PCR NEGATIVE (NEGATIVE); Resp Syncytial Virus, PCR NEGATIVE (NEGATIVE); SARS-Cov-2 (COVID-19) PCR, MMC NEGATIVE (NEGATIVE)
[2021-10-17] MEDS ORDERED: MELATONIN5 M1 PO (12:28)
[2021-10-17] MEDS ORDERED: MEROPENEM1 G1 IV (12:28)
--- NOTE | 2021-10-17 13:00 | NUR ---
PT VERY PLEASANT SOME ANX. DENIES PAIN. A/O X3. STATES PRAYING RELIGION. H/R REG, NO MURMUR NOTED. NO TELE. LUNGS CLEAR, COARSE IN BASES. ON R.A. BT X4 LAST BM YEST PER PT. VOIDS INDEPENDANT IN BATHROOM. PENDING D/C TO SNF. BED IN LOW POSITION, CALL LITE IN REACH, CALLS APROP
--- NOTE | 2021-10-17 15:13 | NUR ---
[facility] TO [facility]. REPORT GIVEN TO AMANDA MAHAN RN. PT TRANSPORTED WITH PICC LINE INTACT. TRANSPORT BY [facility]. [id number]
== END 2021-10-17 15:15 | DRG 178 ==
LOC: MEDS 15:26
PROVIDERS: Family Medicine; ADMIT Family Medicine
PROC: 3E03329 Introduction of Other Anti-infective into Peripheral Vein, Percutaneous Approach (ICD-10-PCS; principal; 2021-10-13)
PROC: 06HY33Z Insertion of Infusion Device into Lower Vein, Percutaneous Approach (ICD-10-PCS; 2021-10-16)
DX: J15.1 Pneumonia due to Pseudomonas (principal); J47.1 Bronchiectasis with (acute) exacerbation; I25.10 Atherosclerotic heart disease of native coronary artery without angina pectoris; H40.9 Unspecified glaucoma; Z79.899 Other long term (current) drug therapy; Z91.013 Allergy to seafood; Z88.8 Allergy status to other drugs, medicaments and biological substances; Z91.030 Bee allergy status; E78.5 Hyperlipidemia, unspecified; K21.9 Gastro-esophageal reflux disease without esophagitis; Z90.49 Acquired absence of other specified parts of digestive tract; Z90.710 Acquired absence of both cervix and uterus; M81.0 Age-related osteoporosis without current pathological fracture; Z95.1 Presence of aortocoronary bypass graft; Z98.890 Other specified postprocedural states; Z66 Do not resuscitate; Z79.82 Long term (current) use of aspirin; Z20.822 Contact with and (suspected) exposure to COVID-19
CPT/HCPCS: 0241U; 36415; 36569; 71046; 80048; 80053; 80069; 83735; 85025; 87040; 92610; 94640; 94664; 94760; 97110; 97116; 97162; 97165; 97535; A9270; C1751; J1650; J2185; J2543; J7040

== ENCOUNTER → 2023-07-26 | Outpatient (CLI) | payer OTHER ==
[~2023-07-26] MED LIST changes: +ALBU3IS INH; +ASPI81CH PO; +ATORVASTATIN CA80 M1 PO; +BREO ELLIPTA INH; +Brimonidine Tartrate BOTHEYES; +DORZOLAMIDE 2%10 M1 BOTHEYES; +FOSAMAX70 MG PO; +Latanoprost BOTHEYES; +Lopressor 25 mg25 MG PO; +MELATONIN5 M1 PO; +MEROPENEM1 G1 IV; +OMEP20ER PO
== END ==
LOC: LAB 09:40 → LAB SHORT 09:40
DX: J47.9 Bronchiectasis, uncomplicated (principal); Z87.09 Personal history of other diseases of the respiratory system
CPT/HCPCS: 87070; 87077; 87186; 87205